=== PATIENT | male | born 1970 | race Caucasian/White ===

== ENCOUNTER 2018-11-18 18:39 | Observation (INO) | payer OTHER ==
[~2018-11-18] VITALS: Ht 170.2 cm; Wt 103.9 kg
--- NOTE | 2018-11-18 22:18 | NUR ---
Upon initiation of IV, pt has a vasovagal response. Dr. Henderson at bedside, crash cart is a bedside, Charge Nurse and additional nursing staff at bedside at this time. Pt's informs staff that this a common response, but "it hasn't happened to this extent before." Pt begins to regain consciousness, will continue to monitor. Pt remained on the monitor, airway intact.
[2018-11-18 22:51] LABS: BASOPHILS # (AUTO) 0.1 (0.0-0.1); BASOPHILS % 0.4 % (0.0-1.0); EOSINOPHILS # (AUTO) 0.2 (0.0-0.4); EOSINOPHILS % 1.1 % (0.0-6.0); HEMOGLOBIN 14.1 g/dL (14.0-18.0); LYMPHOCYTES # (AUTO) 3.3 (1.0-3.2); LYMPHOCYTES % 16.8 % (18.0-39.1); MEAN CORPUSCULAR HEMOGLOBIN 28.4 pg (28-32); MEAN CORPUSCULAR HGB CONC 32.8 g/dL (31-35); MEAN CORPUSCULAR VOLUME 86.5 fL (81-99); MONOCYTES # (AUTO) 0.6 (0.2-0.8); MONOCYTES % 3.3 % (4.4-11.3); NEUTROPHILS # (AUTO) 15.1 (2.1-6.9); NEUTROPHILS % 77.9 % (38.7-80.0); PLATELET COUNT 275 x10e3/uL (140-360); RED BLOOD COUNT 4.97 x10e6/uL (4.3-5.7); RED CELL DISTRIBUTION WIDTH 13.1 % (11.7-14.4)
--- NOTE | 2018-11-18 23:38 | NUR ---
Bedside rounds completed with Bernice shift coordinator CHIP.
--- NOTE | 2018-11-18 23:38 | NUR ---
RECEIVED REPORT FROM CHIP PERSAUD DAY SHIFT NURSE.
[2018-11-19 01:57] LABS: ALANINE AMINOTRANSFERASE 32 IU/L (0-55); ALBUMIN 4.2 g/dL (3.5-5.0); ALBUMIN/GLOBULIN RATIO 1.1 (0.8-2.0); ALKALINE PHOSPHATASE 93 IU/L (40-150); ANION GAP 17.1 mmol/L (8-16); BLOOD UREA NITROGEN 13 mg/dL (7-26); BUN/CREATININE RATIO 15 (6-25); CALCIUM 9.9 mg/dL (8.4-10.2); CARBON DIOXIDE 22 mmol/L (22-29); CHLORIDE 101 mmol/L (98-107); CREATINE KINASE 56 IU/L (30-200); CREATININE, SERUM 0.84 mg/dL (0.72-1.25); EST GLOMERULAR FILTRATION RATE > 60 ML/MIN (60-); GLUCOSE 135 mg/dL (74-118); POTASSIUM 4.1 mmol/L (3.5-5.1); SODIUM 136 mmol/L (136-145)
[2018-11-19 02:07] LABS: BASOPHILS # (AUTO) 0.1 (0.0-0.1); BASOPHILS % 0.3 % (0.0-1.0); EOSINOPHILS # (AUTO) 0.2 (0.0-0.4); EOSINOPHILS % 0.7 % (0.0-6.0); HEMATOCRIT 44.6 % (38.2-49.6); HEMOGLOBIN 14.5 g/dL (14.0-18.0); LYMPHOCYTES # (AUTO) 2.5 (1.0-3.2); MEAN CORPUSCULAR HEMOGLOBIN 28.5 pg (28-32); MEAN CORPUSCULAR HGB CONC 32.5 g/dL (31-35); MEAN CORPUSCULAR VOLUME 87.6 fL (81-99); MONOCYTES # (AUTO) 0.9 (0.2-0.8); MONOCYTES % 3.9 % (4.4-11.3); NEUTROPHILS # (AUTO) 18.6 (2.1-6.9); NEUTROPHILS % 83.5 % (38.7-80.0); PLATELET COUNT 279 x10e3/uL (140-360); RED BLOOD COUNT 5.09 x10e6/uL (4.3-5.7); RED CELL DISTRIBUTION WIDTH 12.9 % (11.7-14.4)
[2018-11-19] MEDS ORDERED: SODIUM CHLORIDE 0.9% 50ML 50 ML ONE (02:07)
[2018-11-19] MEDS ORDERED: IOPAMIDOL 370 MG/ML 200 ML INFUS..BTL INJ ONE (02:07)
[2018-11-19] MEDS ORDERED: SODIUM CHLORIDE 0.9% 1000ML 1,000 ML IV SCH ×2 (02:15)
[2018-11-19] MEDS ORDERED: VANCOMYCIN 1GM/NS 250 ML 250 ML IV STA (02:16)
[2018-11-19 02:19] LABS: CLARITY,URINE CLEAR (CLEAR); COLOR,URINE YELLOW (YELLOW)
[2018-11-19 02:20] LABS: BACTERIA,URINE FEW /HPF; BILIRUBIN,URINE NEGATIVE (NEGATIVE); EPITHELIAL CELLS,URINE FEW /LPF; KETONES,URINE TRACE (NEGATIVE); LEUKOCYTE ESTERASE ,URINE NEGATIVE (NEGATIVE); NITRITE,URINE NEGATIVE (NEGATIVE); PROTEIN,URINE DIPSTICK TRACE (NEGATIVE); URINE UROBILINOGEN 1 mg/dL (0.2 - 1)
[2018-11-19 02:21] LABS: MUCUS,URINE MANY (RARE)
[2018-11-19] MEDS: CEFTRIAXONE SOD 1 GM/NS 50 ML 50 ML IV SCH (02:36)
--- NOTE | 2018-11-19 03:08 | Diagnostic Imaging Report ---
EXAM: CT Chest, Abdomen and Pelvis WITH contrast INDICATION: Shortness of breath. Elevated white count. Nausea. COMPARISON: None. TECHNIQUE: Chest, abdomen and pelvis were scanned utilizing a multidetector helical scanner from the lung apex to the pubic symphysis after administration of IV contrast. Coronal and sagittal reformations were obtained. PE protocol was performed of the chest. The abdomen and pelvis was performed during portal venous phase. IV CONTRAST: 150 mL of Omnipaque 300 ORAL CONTRAST: Water COMPLICATIONS: None RADIATION DOSE: Total DLP: 1278.6 mGy*cm Estimated effective dose: (DLP x 0.015 x size factor) mSv Dose modulation, iterative reconstruction, and/or weight based adjustment of the mA/kV was utilized to reduce the radiation dose to as low as reasonably achievable. FINDINGS: LINES and TUBES: None. LUNGS AND AIRWAYS: No filling defects within the pulmonary arteries to the level of the segmental pulmonary arteries. The lungs are unremarkable. Airways are normal. PLEURA: The pleural spaces are clear. HEART AND MEDIASTINUM: The thyroid gland is normal. No mediastinal, hilar or axillary lymphadenopathy. The heart is normal in size.. There is no pericardial effusion. HEPATOBILIARY: No focal hepatic lesions. No biliary ductal dilation. GALLBLADDER: No radio-opaque stones or sludge. No wall thickening. SPLEEN: No splenomegaly. PANCREAS: No focal masses or ductal dilatation. ADRENALS: No adrenal nodules KIDNEYS/URETERS: Kidneys enhance symmetrically. No hydronephrosis. There are scattered too small to characterize hypodensites, likely benign. No stones. GI TRACT: No abnormal distention, wall thickening, or evidence of bowel obstruction. Appendix is not clearly identified. There is however no fat stranding or adenopathy in the right lower quadrant to suggest appendicitis. PELVIC ORGANS/BLADDER: Unremarkable. LYMPH NODES: No lymphadenopathy. VESSELS: Unremarkable. PERITONEUM / RETROPERITONEUM: No free air or fluid. BONES: Unremarkable. SOFT TISSUES: Unremarkable. IMPRESSION: No pulmonary embolism identified. No acute abnormalities. Signed by: DR. Thiago Miles MD on 11/19/2018 3:04 AM
--- NOTE | 2018-11-19 05:13 | Diagnostic Imaging Report ---
Please refer to report on same-day chest CT for full dictation (accession [id number]). Signed by: DR. Thiago Miles MD on 11/19/2018 5:10 AM
[2018-11-19] MEDS ORDERED: ASPIRIN 81 MG CHEW TAB PO ONE (07:00)
--- NOTE | 2018-11-19 07:02 | NUR ---
ASSUMED CARE AT THIS TIME. PATIENT AWAKE AND ALERT SITTING IN BED. RESP EVEN AND UNLABORED. SKIN WARM AND DRY. NO SIGNS OF ACUTE DISTRESS NOTED AT THIS TIME. DENIES ANY C/O AT THIS TIME.
--- OUTSIDE RECORDS SUMMARY | 2018-11-19 07:26 | XMS REPORT ---
[facility] Address Unknown Phone Unavailable Care Team Providers Care Furnace And Wash Equipment Operator Name Role Phone Pelon BORRERO Unavailable Unavailable Problems This patient has no known problems. Allergies, Adverse Reactions, Alerts This patient has no known allergies or adverse reactions. Medications This patient has no known medications. Results Test Description Test Time Test Comments Text Results Atomic Results Result Comments CT ABDOMEN/PELVIS W 2018-11-19 05:09:00 [place] [address] Patient Name: MELVIN PINA MR #: [id number] : 1970 Age/Sex: 47/M Req #: [id number] Adm Physician: Ordered by: DONNIE MAYER MD Report #: [id number] Location: ER Room/Bed: Procedure: [id number] CT/CT ABDOMEN/PELVIS W Exam Date: 11/19/18 Exam Time: 0210 REPORT STATUS: Signed Please refer to report on same-day chest CT for full dictation (accession [id number]). Signed by: DR. Thiago Xavier MD on 11/19/2018 5:10 AM Dictated By: THIAGO XAVIER MD 9 Transcribed By: NICOLAS on 11/19/18509 COPY TO: DONNIE MAYER MD CT CHEST W 2018-11-19 02:36:00 [facility] [address] [place] [address] Patient Name: MELVIN PINA MR #: [id number] : 1970 Age/Sex: 47/M Req #: [id number] Adm Physician: Ordered by: DONNIE MAYER MD Report #: [id number] Location: ER Room/Bed: Procedure: [id number] CT/CT CHEST W Exam Date: 11/19/18 Exam Time: 0210 REPORT STATUS: Signed EXAM: CT Chest, Abdomen and Pelvis WITH contrast INDICATION: Shortness of breath. Elevated white count. Nausea. COMPARISON: None. TECHNIQUE: Chest, abdomen and pelvis were scanned utilizing a multidetector helical scanner from the lung apex to the pubic symphysis after administration of IV contrast. Coronal and sagittal reformations were obtained. PE protocol was performed of the chest. The abdomen and pelvis was performed during portal venous phase. IV CONTRAST: 150 mL of Omnipaque 300 ORAL CONTRAST: Water COMPLICATIONS: None RADIATION DOSE: Total DLP: 1278.6 mGy*cm Estimated effective dose: (DLP x 0.015 x size factor) mSv Dose modulation, iterative reconstruction, and/or weight based adjustment of the mA/kV was utilized to reduce the radiation dose to as low as reasonably achievable. FINDINGS: LINES and TUBES: None. LUNGS AND AIRWAYS: No filling defects within the pulmonary arteries to the level of the segmental pulmonary arteries. The lungs are unremarkable. Airways are normal. PLEURA: The pleural spaces are clear. HEART AND MEDIASTINUM: The thyroid gland is normal. No mediastinal, hilar or axillary lymphadenopathy. The heart is normal in size.. There is no pericardial effusion. HEPATOBILIARY: No focal hepatic lesions. No biliary ductal dilation. GALLBLADDER: No radio-opaque stones or sludge. No wall thickening. SPLEEN: No splenomegaly. PANCREAS: No focal masses or ductal dilatation. ADRENALS: No adrenal nodules KIDNEYS/URETERS: Kidneys enhance symmetrically. No hydronephrosis. There are scattered too small to characterize hypodensites, likely benign. No stones. GI TRACT: No abnormal distention, wall thickening, or evidence of bowel obstruction. Appendix is not clearly identified. There is however no fat stranding or adenopathy in the right lower quadrant to suggest appendicitis. PELVIC ORGANS/BLADDER: Unremarkable. LYMPH NODES: No lymphadenopathy. VESSELS: Unremarkable. PERITONEUM / RETROPERITONEUM: No free air or fluid. BONES: Unremarkable. SOFT TISSUES: Unremarkable. IMPRESSION: No pulmonary embolism identified. No acute abnormalities. Signed by: DR. Thiago Xavier MD on 11/19/2018 3:04 AM Dictated By: THIAGO XAVIER MD 3 Transcribed By: NICOLAS on 11/19/18303 COPY TO: DONNIE MAYER MD
[2018-11-19] MEDS: SODIUM CHLORIDE 0.9% 1000ML 1,000 ML IV SCH ×2 (08:15→22:59)
[2018-11-19 10:42] LABS: CREATINE KINASE 71 IU/L (30-200)
--- NOTE | 2018-11-19 11:09 | NUR ---
ASSUMED CARE OF PT. AT THIS TIME. PT. FAMILY UPDATED
--- NOTE | 2018-11-19 18:13 | NUR ---
LAB WAS CALLED TO COME AND DRAW CARDIAC MARKERS
[2018-11-19 19:13] LABS: CREATINE KINASE MB 1.1 ng/mL (0-5.0)
[2018-11-19 21:36] VITALS: BP 143/83
[2018-11-19 22:30] VITALS: BP 143/83
[2018-11-20 00:34] VITALS: BP 120/71
[2018-11-20] MEDS: CEFTRIAXONE SOD 1 GM/NS 50 ML 50 ML IV SCH (03:00)
--- NOTE | 2018-11-20 03:53 | History and Physical ---
CHIEF COMPLAINT: Chest pain and dizziness. HISTORY OF PRESENT ILLNESS: The patient is a 47-year-old man. He reports no past medical history. He was driving when he felt dizzy and had some nausea. He stopped the car and felt as if he were going to vomit. He also noticed some pain in his chest on the left side that was worse with inspiration. He does not complain of cough or fevers. PAST MEDICAL HISTORY: 1. History of vasovagal episodes. 2. No prior history of cardiac disease. 3. No prior history of pulmonary disease. PAST SURGICAL HISTORY: Noncontributory. SOCIAL HISTORY: The patient is not a smoker. He is not a drinker. ALLERGIES: NO KNOWN DRUG ALLERGIES. FAMILY HISTORY: The patient's family history is noncontributory. REVIEW OF SYSTEMS: The patient is afebrile. He has no headache. He does have some chronic neck pain that he attributes to problems with the gym. He notes some pain on the left side of chest that is worse with inspiration. He denies cough or dyspnea. He is not having any abdominal pain. He has no nausea or vomiting. He is not having any leg swelling. He denies any rashes. PHYSICAL EXAMINATION: VITAL SIGNS: The patient is afebrile. The blood pressure is 104/67, pulse is 81, respiratory rate is 20, and saturation is 100%. HEENT: Shows no facial swelling or erythema. Nasal mucosa is normal. The oropharynx is normal. LYMPHATIC: Shows no submandibular, cervical, or supraclavicular adenopathy. CARDIAC: Reveals regular rate and rhythm with normal S1 and S2. There are no murmurs or rubs. CHEST: Auscultation of lungs reveals clear breath sounds bilaterally. There is no wheezing. ABDOMEN: Soft, nontender. There is no rebound or guarding. EXTREMITIES: Show no leg edema or calf tenderness. There is no cyanosis or clubbing. SKIN: Shows no rashes. NEUROLOGIC: Shows no focal abnormalities. LABORATORY DATA: White blood cell count is 22.3 and hemoglobin 14.5. Platelet count is 279. BUN to creatinine ratio is 13 to 0.84 and the lactic acid is 32.6. Other electrolytes are within normal limits. Troponin I's are normal. IMPRESSION: 1. Leukocytosis of unclear etiology. 2. Pleuritic chest pain. 3. Transient nausea and dizziness. PLAN: 1. The patient will have repeat CBC and lactic acid tomorrow morning. 2. Continue IV antibiotics and IV fluids. 3. Rapid flu and nasal swab for MRSA. 4. Cardiac enzymes. 5. Echocardiogram. MD GABY Sanchez/KRIS /[id number]
[2018-11-20 04:05] VITALS: BP 116/75
[2018-11-20 05:53] LABS: BASOPHILS # (AUTO) 0.1 (0.0-0.1); BASOPHILS % 0.5 % (0.0-1.0); EOSINOPHILS # (AUTO) 0.5 (0.0-0.4); EOSINOPHILS % 4.6 % (0.0-6.0); LYMPHOCYTES # (AUTO) 2.7 (1.0-3.2); MEAN CORPUSCULAR HEMOGLOBIN 28.4 pg (28-32); MEAN CORPUSCULAR HGB CONC 32.5 g/dL (31-35); MEAN CORPUSCULAR VOLUME 87.3 fL (81-99); MONOCYTES # (AUTO) 0.5 (0.2-0.8); NEUTROPHILS # (AUTO) 6.5 (2.1-6.9); NEUTROPHILS % 63.6 % (38.7-80.0); PLATELET COUNT 223 x10e3/uL (140-360); RED BLOOD COUNT 4.58 x10e6/uL (4.3-5.7); RED CELL DISTRIBUTION WIDTH 13.2 % (11.7-14.4)
[2018-11-20 06:27] LABS: ALANINE AMINOTRANSFERASE 24 IU/L (0-55); ALBUMIN 3.2 g/dL (3.5-5.0); ALBUMIN/GLOBULIN RATIO 1.1 (0.8-2.0); ALKALINE PHOSPHATASE 76 IU/L (40-150); ANION GAP 9.6 mmol/L (8-16); BLOOD UREA NITROGEN 9 mg/dL (7-26); BUN/CREATININE RATIO 12 (6-25); CALCIUM 8.8 mg/dL (8.4-10.2); CARBON DIOXIDE 25 mmol/L (22-29); CHLORIDE 108 mmol/L (98-107); CREATININE, SERUM 0.77 mg/dL (0.72-1.25); EST GLOMERULAR FILTRATION RATE > 60 ML/MIN (60-); GLUCOSE 111 mg/dL (74-118); POTASSIUM 3.6 mmol/L (3.5-5.1); SODIUM 139 mmol/L (136-145)
[2018-11-20 07:25] LABS: CREATINE KINASE MB 0.7 ng/mL (0-5.0)
--- NOTE | 2018-11-20 07:30 | NUR ---
Report given and walking rounds complete. Pt resting in bed and in no distress, safety measures ensured. Pt EJ IV removed due to pt complaints of pain and IV not working.
[2018-11-20 07:45] VITALS: BP 123/68
[2018-11-20 08:00] VITALS: BP 123/68
--- NOTE | 2018-11-20 10:00 | NUR ---
Patient discharge instructions given to patient. Patient verbalized understanding. IVs discontinued at this time, catheters in tact and small dressings applied. Patient refused wheelchair assistance and is being escorted from the floor in stable condition, alert and oriented. Patient to go to personal auto for father to drive home.
--- NOTE | 2018-11-20 11:38 | NUR ---
SOCIAL WORK INITIAL ASSESSMENT Roller Leveler Operator to bedside to discuss plan of care with patient/family. CM/SW role and care transitions discussed. Anticipated discharge plan discussed along with duration of care. CM/SW discussed patients right to make decisions in care. CM/SW work hours given. Patient lives: LIVES IN HOUSE WITH Admit/Transfer: VIA ED POA/Emergency contact: JUAREZ [phone] Current/Previous Home Health: NONE PCP/Follow-up Care: TINY Current/Previous DME: NONE Other Services: NONE Employment Status: [employer] Areas of Concerns: NONE Referral Needs: NONE Education Needs: NONE IMM/GONZALEZ given and signed (if applicable): NONE Goal for discharge: RETURN HOME CM/SW left business card at the bedside with contact information. Name and number was also written on the patients whiteboard. Patient verbalized understanding of discussion. CM will follow-up with ongoing discharge and transition of care needs.
--- NOTE | 2018-11-21 11:59 | Discharge Summary ---
DISCHARGE DIAGNOSES: 1. Leukocytosis of unclear etiology. 2. Atypical chest pain. 3. Transient nausea and dizziness. RADIOGRAPHIC TESTIN. CT scan of the abdomen and pelvis showed no active disease. 2. CT scan of the chest with PE protocol showed no active disease. HISTORY OF PRESENT ILLNESS: The patient is a 47-year-old man. He has no past medical history. He was driving his car when he felt dizzy and had some nausea. He noticed some pain in the left side of his chest that changed with inspiration. He denied cough or fevers. HOSPITAL COURSE: The patient was initially evaluated in the ER and found to have an elevated white blood cell count. Of 22.3. He also had a mildly elevated lactic acid at 32.6. The patient had a CT scan of the chest as well as a CT scan of the abdomen and pelvis that were negative. He was placed in observation. He had serial EKGs and cardiac enzymes, which were negative. He had a repeat white blood cell count in the morning that returned to 10. Influenza swabs were negative. He felt much better at the time of discharge and was eager to go home. DISPOSITION: The patient will be discharged home and will follow up with Dr. Mayito Mackay. Patrice Srivastava MD [facility] /[id number] cc: Mayito Mackay DO
== END 2018-11-20 10:09 | disposition home or self-care (01) ==
LOC: ER 18:39 → ERHOLD 11-19 06:57 → IMCU 11-19 21:00
PROVIDERS: ADMIT Internal Medicine Critical Care Medicine; ATTEND Internal Medicine Critical Care Medicine
DX: R07.89 Other chest pain (principal); D72.829 Elevated white blood cell count, unspecified; R11.0 Nausea; R42 Dizziness and giddiness
CPT/HCPCS: 36415 ×2; 71260; 74177; 80053 ×2; 81001; 82550 ×2; 82553 ×2; 83605 ×2; 83690; 84145; 84484 ×2; 85025 ×3; 85379; 87040; 87081; 87400; 93005; 93306; 99284; G0378 ×2; J0696 ×2; J3370; J7030; Q9967